=== PATIENT | female | born 1945 | race Caucasian/White ===

== ENCOUNTER 2024-06-26 12:33 | Inpatient (IN) | payer MEDICARE ==
[~2024-06-26] VITALS: Ht 167.6 cm; Wt 97.0 kg
[~2024-06-26 12:33] MED LIST: ASPIRIN 81M81 MG/TA2 PO; CEFDINIR300 MG PO; FLOMAX0.4 MG PO; LOVASTATIN20 M1 PO; MACROBID 100 M100 MG PO; MOUNJARO5 MG/0.5 M SQ; OZEMPIC0.25 MG/02 SQ; PERCOCET 325 MG1 TA2 PO; ZOFRAN ODT4 MG PO
[2024-06-26 14:50] VITALS: BP 151/79
[2024-06-26] MEDS ORDERED: GLUCOPHAGE PO (15:12)
[2024-06-26] MEDS ORDERED: Acetaminophen 325 MG TAB PO PRN (16:15)
[2024-06-26] MEDS ORDERED: Melatonin 3 MG TAB PO PRN (16:30)
--- NOTE | 2024-06-26 16:33 | NUR ---
PT ARRIVED TO [facility] AT 1430. PT WHEELED TO ROOM 306 AND AMBULATED TO CHAIR WITHOUT DIFFICULTY. PT HERE FOR IV ANTIBIOTICS. MIDLINE IV TO LEFT UPPER ARM. PT STATES SHE WALKS IN ROOM WITHOUT A WALKER BUT WITH ASSISTANCE BUT NEEDS A WALKER FOR LONG DISTANCES. PT IS FULL CODE.
[2024-06-26 16:41] LABS: BASO # 0.03 K/mm3 (0.02-0.10); EOS # 0.15 K/mm3 (0.04-0.40); EOS % 1.9 % (1.0-5.0); HEMATOCRIT 43.3 % (37.0-47.0); HEMOGLOBIN 14.1 g/dL (12.5-16.0); LYMPH# 1.99 K/mm3 (1.50-4.00); MEAN CELL VOLUME 98 fl (78-100); MEAN CORPUSCULAR HEMOGLOBIN 32 pg (27-31); MEAN CORPUSCULAR HGB CONC 33 g/dL (33-37); MEAN PLATELET VOLUME 9.9 fl (7.4-10.4); MONO # 1.05 K/mm3 (0.20-0.80); NEU # 4.56 K/mm3 (1.40-6.50); PLATELET COUNT 269 K/mm3 (130-400); RED BLOOD COUNT 4.42 M/mm3 (4.10-5.30); RED CELL DISTRIBUTION WIDTH 14.6 % (11.5-14.5); WHITE BLOOD COUNT 7.8 K/mm3 (4.8-10.8)
[2024-06-26 16:57] LABS: ALBUMIN 3.2 g/dL (3.4-4.8)
[2024-06-26 16:58] LABS: CALCIUM 9.6 mg/dL (8.3-10.5)
[2024-06-26 16:59] LABS: TOTAL PROTEIN 6.3 g/dL (6.2-8.1)
[2024-06-26] MEDS ORDERED: WATER FOR INJECTION STERILE IV SCH (17:00)
[2024-06-26] MEDS ORDERED: CEFTAZIDIME IV SCH (17:00)
[2024-06-26 17:01] LABS: TOTAL BILIRUBIN 0.4 mg/dL (0.2-1.2)
[2024-06-26 17:14] VITALS: BP 153/85
[2024-06-26 22:03] LABS: URINE COLOR YELLOW (YELLOW)
[2024-06-26 22:04] LABS: URINE APPEARANCE SLIGHTLY CLOUDY (CLEAR); URINE BILIRUBIN NEGATIVE (NEGATIVE); URINE BLOOD NEGATIVE (NEGATIVE); URINE GLUCOSE TRACE (NEGATIVE); URINE KETONE NEGATIVE (NEGATIVE); URINE LEUKOCYTE ESTERASE TRACE (NEGATIVE); URINE NITRATE NEGATIVE (NEGATIVE); URINE PROTEIN(semi-quant) NEGATIVE (NEGATIVE)
[2024-06-27 05:35] VITALS: BP 146/79
[2024-06-27] MEDS ORDERED: metFORMIN 500 MG TAB PO SCH (09:00)
[2024-06-27] MEDS ORDERED: Miconazole 2% Topical Powder BOTTLE TP SCH (14:40)
--- NOTE | 2024-06-27 15:22 | NUR ---
SPOKE WITH FRANCISCO J. SHE STATES HER PRIMARY CARE DOCTOR IN [place] IS YARED GOODRICH, [address], [place], PHONE [phone]. FAX: CM ATTEMPTED TO CALL CLINIC THE MESSAGE IN BOX IS FULL AND NOT ABLE TO TAKE MY CALL AT THIS TIME. FRANCISCO J WILL NEED A FOLLOW UP APPOINTMENT WITH HER PRIMARY CARE DOC. CLINICALS WILL NEED TO BE FAXED UPON DISCHARGE TO PCP. FRANCISCO J IS WANTING TO TAKE A PLAN BACK TO [place] ON THE DAY OF DISCARGE. SHE HAS A RIDE TO [place] VIA HER SISTER ALMA WIN. THIS CM WILL CONTINUE TO CONTACT HER PRIMARY CARE DOCTOR.
--- NOTE | 2024-06-27 16:23 | NUR ---
Pt Ox4, denies pain. FSBS have been <150mg/dL. Notify provider if continues, will d/c accuchecks in AM. Had BNP, WNL. Redness and irritation to L groin r/t incontinence. Applied desenex powder. Knee high JOHN's applied.
[2024-06-27 17:17] VITALS: BP 134/72
[2024-06-28 05:43] VITALS: BP 150/72
--- NOTE | 2024-06-28 08:55 | NUR ---
PT RESTING IN CHAIR TALKING WITH THERAPY. MEDICATION TAKEN PO. ASSESMENT COMPLETE. NO BLOOD RETURN ON MIDLINE IV, FLUSHED AND ANTIBIOTICS GIVEN WITHOUT DIFFICULTY. NO OTHER WANTS OR NEEDS AT THIS TIME. CALL LIGHT WITHIN REACH, CHAIR ALARM ON.
[2024-06-28 16:50] VITALS: BP 160/82
[2024-06-28] MEDS ORDERED: Loperamide 2 MG CAP PO PRN (18:00)
[2024-06-29 06:06] VITALS: BP 144/80
[2024-06-29] MEDS ORDERED: WATER FOR INJECTION STERILE IV SCH (17:00)
[2024-06-29] MEDS ORDERED: CEFTAZIDIME IV SCH (17:00)
[2024-06-29 17:57] VITALS: BP 150/81
--- NOTE | 2024-06-29 20:40 | NUR ---
PT LAYIN IN BED WITH HEAD ELEVATED WATCHING A VIDEO ON HER PHONE. HER FAMILY HAS JUST LEFTA FTER PLAYING CARDS WITH PT. PT DENIES PAIN WHEN ASKED. PT IS INDEPENDENT IN ROOM PT TAKES MEDICATION WITHOUT DIFFICULTIES. PT ABOMINAL FOLDS AND TON-AREA WAS CLEANSED WITH SOAP AND WATER BY NURSE BEFORE APPLYING DESENEX POWEDER FOR EXCORIATED SKIN. SKIN AREAS ARE PINK. PT REQUEST SLEEPING MEDICATIONS, WHICH ARE PROVIDED. CALL LIGHT IN REACH OF PT IF ASSISTANCE IS NEEDED.
[2024-06-30 06:09] VITALS: BP 126/69
--- NOTE | 2024-06-30 06:49 | NUR ---
REPORT GIVEN TO REYNA LOAIZA
--- NOTE | 2024-06-30 11:03 | NUR ---
AM REPORT RECEIVED FROM FADIA DENNISON. PT UP AD DIEGO. DENIES PAIN. PT REQUESTING IMODIUM. IV ANTIBIOTIC GIVEN WITHOUT ANY DIFFICULTY.
--- NOTE | 2024-06-30 12:59 | NUR ---
MIDLINE IV DRESSING CHANGED TODAY, WITH NEW BIOPATCH AND CAPS CHANGED.
[2024-06-30 17:32] VITALS: BP 151/77
--- NOTE | 2024-06-30 18:43 | NUR ---
REPORT GIVEN TO JANET BAIG.
--- NOTE | 2024-06-30 20:03 | NUR ---
Report received from Zayda LOAIZA. Patient sitting up in recliner playing cards with visitors. A/O x4. Denies pain or needs at this time.
--- NOTE | 2024-06-30 21:15 | NUR ---
Company left. Assessment completed. Incontinent of large amount of urine pooling in brief. Chux on bed wet and in chair wet. Patient unaware of incontinence. Up ad-robi to BR and independent with incontinent cares, brief change. Gown provided. Requests and given PRN Melatonin and Tylenol for sleep. Denies futher wants or needs. MARKETING PROPOSAL COORDINATOR in to tidy up room.
[2024-07-01 06:05] VITALS: BP 150/74
--- NOTE | 2024-07-01 06:46 | NUR ---
Report to Zayda LOAIZA
--- NOTE | 2024-07-01 09:00 | NUR ---
AM REPORT RECEIVED FROM JANET BAIG. PT IS ALERT AND ORIENTED, DENIES ANY PAIN. PT UP AD DIEGO IN ROOM. PT VERY EXCITED FOR LAST DOSE OF ANTIBIOTICS AND FOR DISCHARGE TOMORROW.
[2024-07-01 17:14] VITALS: BP 122/71
--- NOTE | 2024-07-01 18:42 | NUR ---
REPORT GIVEN TO JANET BAIG
--- NOTE | 2024-07-01 19:08 | NUR ---
Report received from Zayda LOAIZA. Patient resting supine in bed watching TV. A/O x4. Denies pain. States stomach was upset earlier but thinks she ate too much. Reports B&B moving today, no diarrhea. Assessment completed. Up ad-robi in room. Sprite provided per request.
[2024-07-02 05:37] VITALS: BP 157/77
--- NOTE | 2024-07-02 06:57 | NUR ---
Report to Vania LOAIZA.
--- NOTE | 2024-07-02 08:30 | NUR ---
Pt is alert and oriented times 4. She is anxiously wanting to go home. She denies pain. She does have picc line to left upper extremity that flushes without difficulty. She ambulates with limp walk. She does not use walker.
[2024-07-02] MEDS ORDERED: WATER FOR INJECTION STERILE IV ONE (10:30)
[2024-07-02] MEDS ORDERED: CEFTAZIDIME IV ONE (10:30)
[2024-07-02] MEDS ORDERED: ANTIFUNGAL POWD85 GM TP (11:09)
--- NOTE | 2024-07-02 12:00 | NUR ---
PT. educated on the removal of picc line and that she will need to lie flat for 30 minutes. vs prior to procedure 137/76 93 95 r\a. Hand santizer used to loosen drsg and there was no stitch attached. She was instructed to bear down and hold breath which she did. Picc line pulled and was intact. She was asked how pain was and at this time she declines pain. 1203 vs 121/63 90 HR and 95 on R/A. she continues to decline pain after picc line removed. Sterile telfa applied and tegaderm. Pt was instructed to leave drsg intact for the next 24 hours along with instruction sheet on restrictions after picc line removal.
--- NOTE | 2024-07-02 13:01 | NUR ---
Pt was assissted to car at this time with all belongings. She was placed in car without incident. She left with brother inlaw. Left arm where picc line was removed is without bleeding and soft to touch.
== END 2024-07-02 13:00 | disposition home or self-care (01) | DRG 690 ==
LOC: MED/SURG 12:33
PROVIDERS: Registered Nurse; ADMIT Internal Medicine
DX: N39.0 Urinary tract infection, site not specified (principal); B96.5 Pseudomonas (aeruginosa) (mallei) (pseudomallei) as the cause of diseases classified elsewhere; R73.03 Prediabetes; G47.00 Insomnia, unspecified; E78.5 Hyperlipidemia, unspecified; L30.4 Erythema intertrigo
CPT/HCPCS: J0713; J1650